=== PATIENT | male | born 1955 | race African-American/Black ===

== ENCOUNTER 2020-11-15 17:20 | Inpatient (IN) | payer OTHER ==
[~2020-11-15] VITALS: Ht 157.5 cm; Wt 55.1 kg
[2020-11-15 17:29] VITALS: BP 152/41
[2020-11-15 18:53] LABS: BASOPHILS 1.2 % (0.0-2.0); RBC 2.02 mil/uL (4.50-6.00)
[2020-11-15 18:55] LABS: ABSOLUTE NEUTROPHILS 3.3 thou/uL (1.4-8.2); EOSINOPHILS 6.5 % (0.0-3.0); LYMPHOCYTES 18.6 % (24.0-44.0); MONOCYTES 8.5 % (1.0-8.0); POLYS 65.2 % (36.0-66.0)
[2020-11-15 18:56] LABS: MCH 30.6 pg (26.0-34.0); MCHC 32.9 g/dL (28.0-37.0); MCV 92.9 fL (80.0-100.0); RDW 16.4 % (10.5-14.5)
[2020-11-15 18:59] LABS: HEMATOCRIT 18.8 % (42.0-52.0); HEMOGLOBIN 6.2 gm/dL (14.0-18.0)
[2020-11-15 19:00] LABS: CALCIUM 8.7 mg/dL (8.5-10.1); CREATININE 8.5 mg/dL (0.7-1.3); POTASSIUM 4.7 mmol/L (3.5-5.1)
[2020-11-15 19:14] LABS: ANISOCYTOSIS 1+; LARGE PLATELETS RARE; PLATELET COUNT 42 thou/uL (150-400)
[2020-11-15 20:48] VITALS: BP 157/59
[2020-11-15] MEDS ORDERED: VITAMIN C500 M2 PO (20:48)
[2020-11-15 21:20] VITALS: BP 126/25
[2020-11-15 21:43] VITALS: BP 128/50
[2020-11-15 23:04] VITALS: BP 142/40; BP 148/48
[2020-11-16] MEDS ORDERED: ATIVAN1 M1 PO (01:49)
[2020-11-16] MEDS ORDERED: ASA81BEC PO (01:49)
[2020-11-16] MEDS ORDERED: LIPITOR40 MG PO (01:50)
[2020-11-16] MEDS ORDERED: FUROSEMIDE 40 M40 MG PO (01:52)
[2020-11-16] MEDS ORDERED: SLOW FE142 MG PO (01:52)
[2020-11-16] MEDS ORDERED: HUMALOG100 UNIT/1 SUBQ (01:53)
[2020-11-16] MEDS ORDERED: HYDRALAZINE 10M10 MG PO (01:54)
[2020-11-16] MEDS ORDERED: ACULAR 0.5% EYE5 ML LT. EYE (01:56)
[2020-11-16] MEDS ORDERED: LEVOTHYROXINE100 MC2 PO (01:57)
[2020-11-16] MEDS ORDERED: LINEZOLID600 MG PO (01:59)
[2020-11-16] MEDS ORDERED: LOPERAMIDE 2 MG2 M1 PO (02:00)
[2020-11-16] MEDS ORDERED: MELATONIN3 M1 PO (02:00)
[2020-11-16] MEDS ORDERED: METAMUCIL FIBE3.4 GM PO (02:02)
[2020-11-16] MEDS ORDERED: PRED FORTE 1% EY5 M1 LT. EYE (02:05)
[2020-11-16] MEDS ORDERED: NORVASC5 MG PO (02:05)
[2020-11-16] MEDS ORDERED: REMERON15 M2 PO (02:07)
[2020-11-16] MEDS ORDERED: RENAL-VITE TAB0.8 MG PO (02:08)
[2020-11-16] MEDS ORDERED: RENVELA0.8 GM PO (02:09)
[2020-11-16] MEDS ORDERED: TRADJENTA5 MG (02:11)
[2020-11-16] MEDS ORDERED: SANTYL OINTMENT30 G1 TOP (02:11)
[2020-11-16] MEDS ORDERED: ZINC-22050 MG PO (02:12)
--- NOTE | 2020-11-16 04:13 | NUR ---
ASSUMED CARE OF PT FROM ED AT 2130. PT AOX3-4. PT WAS ORIENTED TO THE UNIT AND HIS ROOM. FALL PRECAUTION IN PLACE. PT WAS ABLE TO ANSWER MOST ADMISSION RELATED QUESTIONS. PT PLACED ON TELE. 1 UNIT OF PRBC GIVEN. PT REPORTED PAIN AND WAS TREATED WITH ONE TIME PAIN MEDS. ASSESSMENT CHARTED. RIGHT LOWER EXTEREMITY (STUMP) WOUND NOTED; PIC TAKEN. PROTONIX DRIP STARTED AFTER BLOOD TX. RUE PICC PLACEMENT VERIFIED. PT IS NPO. PT WAS ABLE OT GET COMFORTABLE AND SLEEP PART OF THE SHIFT. VSS AND NO S/S OF ACUTE DISTRESS. WILL CONTINUE TO MONITOR.
[2020-11-16 07:24] LABS: MCV 93.7 fL (80.0-100.0)
[2020-11-16 07:26] LABS: ABSOLUTE NEUTROPHILS 5.2 thou/uL (1.4-8.2); BASOPHILS 0.7 % (0.0-2.0); CALCIUM 8.6 mg/dL (8.5-10.1); CREATININE 9.4 mg/dL (0.7-1.3); EOSINOPHILS 3.2 % (0.0-3.0); HEMATOCRIT 23.3 % (42.0-52.0); HEMOGLOBIN 7.8 gm/dL (14.0-18.0); LYMPHOCYTES 7.2 % (24.0-44.0); MCH 31.2 pg (26.0-34.0); MCHC 33.3 g/dL (28.0-37.0); MONOCYTES 5.7 % (1.0-8.0); POLYS 83.2 % (36.0-66.0); POTASSIUM 5.1 mmol/L (3.5-5.1); RBC 2.48 mil/uL (4.50-6.00); RDW 15.3 % (10.5-14.5); WBC 6.2 thou/uL (4.0-11.0)
[2020-11-16 08:28] VITALS: BP 149/47
[2020-11-16 10:07] LABS: LARGE PLATELETS OCCASIONAL; PLATELET COUNT 39 thou/uL (150-400); PLATELET ESTIMATE MARKEDLY DECREASED
[2020-11-16 12:23] LABS: % SATURATION 109 % (20-39); IRON 198 ug/dL (65-175); TIBC 182 ug/dL (250-450)
--- NOTE | 2020-11-16 12:43 | NUR ---
WOUND CONSULT; INITAL ASSESSMENT. 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 THE WOUND SEEMS STALLED. THE WOUND HAS NO S/S OF INFECTION APPROX 50% NON VIABLE TISSUE IN THE WOUND BED, THE WOUND MEASURES APPROX 9 X 4 X 0.1 RECCOMMENDATIONS; -[address] NATASHA MORROW -2 FOR NOW FIONA, FOAM DRESSING, KEFLIX, RYAN. DISCUSSED WITH SKIP
--- NOTE | 2020-11-16 13:56 | NUR ---
FAXED CLINICAL UPDATES TO [facility]. WILL CONFIRM WITH MIKE/LIAISON THAT SHE RECEVIED. [facility] P [phone]; EFAX [phone]
--- NOTE | 2020-11-16 14:58 | NUR ---
PT ADMITTED RELATED TO GIB; ANEMIA. CM REVIEWED CHART AND SPOKE WITH CARE TEAM. CM CALLED AND SPOKE WITH PT'S DTR JOCELYN. SHE CONFIRMED THAT PT HAD BEEN AT [facility] AFTER HAVING A R BKA FOR THERAPY AND IV ABX. SHE INDICATED THAT IF PT NEEDS CONTINUES IV ABX AND REHAB UPON DC THAT SHE WOULD ANTICIPATE PT RETURING THERE TO RESUME SERVICES. CM PROVIDED CLINICAL UPDATE TO POST ACUTE LIASISON MIKE AND SHE INDICATED THEY ARE ABLE TO ACCEPT PT BACK ONCE MEDICALLY STABLE. PT IS CURRENTLY DOING DIALYSIS AT [facility] T, R, S. PT HAD PAT AT [facility] PRIOR TO SKILLED AT [facility] DTR SAID EVENTUAL PLAN IS FOR PT TO RETURN THERE AND DO IN HOUSE DIALYSIS. CM TO FOLLOW INDICATED WITH DC PLANNING.
[2020-11-16 19:59] VITALS: BP 138/54
--- NOTE | 2020-11-17 02:05 | NUR ---
ASSUMED CARE OF PT AT SHIFT CHANGE. PT IS AOX4 AND LETS NEEDS BE KNOWN. FALL PRECAUTION IN PLACE. DAILYSIS COMPLETED THIS SHIFT AND 2000ML FLUID WAS REMOVED. PT TOLERATED LAXATIVE (MAG CIT) THIS SHIFT AND HAD A LARGE BM. PT IS CRRENTLY NPO. D5 NS INFUSING AT 80ML/HR. PT WAS ABLE TO GET COMFORTABLE AND SLEEP PART OF THE SHIFT. VSS AND NO S/S OF ACUTE DISTRESS. WILL CONTINUE TO MONITOR.
[2020-11-17 06:13] LABS: ALBUMIN 2.5 g/dL (3.4-5.0); DIRECT BILIRUBIN 0.2 mg/dL (<0.1-0.2); TOTAL BILIRUBIN 0.5 mg/dL (0.2-1.0); TOTAL PROTEIN 6.9 g/dL (6.4-8.2)
--- NOTE | 2020-11-17 10:20 | NUR ---
PT ALERT AND ORIENTED THIS AM RESTING IN BED. PT STATES THAT HE IS TIRED. BLOOD GLUCOSE 67 THIS AM, D50 AMP GAVE PER PRN ORDER BLOOD SUGAR NOW 133. PT ALERT AND IS WATCHING TV AT THIS TIME, DENIES PAIN OR DISCOMFORT. PT CONT TO BE NPO AT THIS TIME PENDING PROCEDURES FOR GI BLEED.
--- NOTE | 2020-11-17 11:00 | NUR ---
WOUND CARFE F/U; THE WOUNDS WERE ASSESSED BY PASCUAL SAMS. THE WOUND HAS SOME BENIFIT FROM [facility] IN JUST TWO DAYS. WE WILL CONTINUE DRESSING CHANGES PER DR MORROW. NO ODOR OR ASSESSMENT FINDING SUGGESTIVE OF A LOCAL INFECTION. CONTINUE CURRENT ORDERS. DISCUSSED WITH SKIP
--- NOTE | 2020-11-17 12:24 | NUR ---
CARE TEAM INDICATED THAT PT IS TO HAVE A COLONOSCOPY TOMORROW. PT CONTINUES ON IV ABX, WC , AND T, R, S DIALYSIS. CM TO FOLLOW INDICATED WITH DC PLANNING.
[2020-11-17 15:50] VITALS: BP 163/73
--- NOTE | 2020-11-17 15:55 | NUR ---
PT RESTING AT THIS TIME AND EDUCATED ON THE PLAN FOR EGD AND COLONOSCOPY 11/18, DAUGHTER CALLED AND UPDATED ON PLAN. PT HAS NO QUESTIONS OR CONCERNS AT THIS TIME AND CONT ON A CLEAR LIQUID DIET.
[2020-11-17 17:07] LABS: HEP B SURFACE Ab(ANTI-HBS Reactive (()); HEPATITIS B SURFACE AG Negative (Negative)
[2020-11-17 20:00] VITALS: BP 152/50
[2020-11-18] VITALS (12 sets, daily range): BP systolic 143–183; BP diastolic 46–88
[2020-11-18 05:45] LABS: MCHC 33.6 g/dL (28.0-37.0); MCV 93.6 fL (80.0-100.0); WBC 2.6 thou/uL (4.0-11.0)
[2020-11-18 05:46] LABS: HEMATOCRIT 21.4 % (42.0-52.0); HEMOGLOBIN 7.2 gm/dL (14.0-18.0); MCH 31.4 pg (26.0-34.0); RBC 2.29 mil/uL (4.50-6.00); RDW 15.8 % (10.5-14.5)
[2020-11-18 07:47] LABS: CALCIUM 8.4 mg/dL (8.5-10.1); POTASSIUM 3.9 mmol/L (3.5-5.1)
[2020-11-18 07:49] LABS: CREATININE 7.4 mg/dL (0.7-1.3)
--- NOTE | 2020-11-18 12:17 | NUR ---
PT HAVING COLONOSCOPY THIS DAY. PT CONTINUES ON IV ABX, WC, AND DIALYSIS. CLINICAL UPDATE SENT TO [facility]. TO FOLLOW INDICATED WITH DC PLANNING.
--- NOTE | 2020-11-18 18:27 | NUR ---
PT HAD DIALYSIS TODAY. 2L FLUID OFF IN DIALYSIS. PT LEFT FOR COLONSCOPY AT 1645 WITH GI NURSING STAFF. PT BLOOD GLUCOSE WAS LOW AT NOON. 1 AMP OF DEXTROSE GIVEN PT WAS NPO AND CHECK WAS 114.
--- NOTE | 2020-11-19 01:41 | NUR ---
RETURNED FROM GI PROCEDURE APPROXIMATELY 1900. PT IS A/O X4 AND IS ON BED REST. ROOM AIR. SR ON THE MONITOR. BP ELEVATED AT START OF SHIFT AND HAS BEEN TRENDING DOWN SINCE.HS BS SUGAR REQUIRED INSULIN COVERAGE CHARTED IN NOV. FALL PRECAUTIONS IN PLACE, CALL LIGHT IS WITHIN REACH. WILL CONTINUE TO MONITOR.
--- NOTE | 2020-11-19 08:13 | NUR ---
Note Given: Y Facility List Provided:Y Facility Maciej: None chosen at this time Roxy Feng NP discussed BPCI with this pt 11/18/2020
[2020-11-19 08:28] VITALS: BP 156/58
[2020-11-19 09:18] LABS: HEMATOCRIT 22.1 % (42.0-52.0); RBC 2.39 mil/uL (4.50-6.00); WBC 3.7 thou/uL (4.0-11.0)
[2020-11-19 09:20] LABS: HEMOGLOBIN 7.3 gm/dL (14.0-18.0); MCH 30.6 pg (26.0-34.0); MCV 92.8 fL (80.0-100.0)
[2020-11-19 09:27] LABS: MAGNESIUM 2.3 mg/dL (1.8-2.4); POTASSIUM 3.6 mmol/L (3.5-5.1)
[2020-11-19 09:28] LABS: CREATININE 5.1 mg/dL (0.7-1.3)
[2020-11-19 11:42] LABS: ALBUMIN 2.6 g/dL (3.4-5.0); DIRECT BILIRUBIN 0.2 mg/dL (<0.1-0.2); TOTAL BILIRUBIN 0.5 mg/dL (0.2-1.0); TOTAL PROTEIN 6.9 g/dL (6.4-8.2)
[2020-11-19 11:53] VITALS: BP 144/63
--- NOTE | 2020-11-19 14:30 | NUR ---
FAXED CLINICAL UPDATE TO [facility] RECEIVED CONFIRMATION AND SPOKE WITH MIKE IN ADM FOR POSS DC OVER THE WEEKEND.
--- NOTE | 2020-11-19 14:34 | NUR ---
CARE TEAM INDICATED THAT PT MAY BE MEDICALLY STABLE TO DC BACK TO [facility] THIS WEEKEND. CLINICAL UPDATES WERE FAXED TO THE FACILITY. CHART COPY WILL NEED TO BE MADE. PT IS , SUNDAY, SUNDAY DIALYSIS HERE AND AT THE FACILITY AT [facility]. IF DC READY OVER WEEKEND CONTACT KRISTI MAIRE AT . ORDERS WILL NEED TO BE FAXED TO . CALL REPORT TO . NOTIFY PT'S DTR.
[2020-11-19 16:28] VITALS: BP 150/65
--- NOTE | 2020-11-19 20:10 | NUR ---
Assumed pt care this am. Pt is alert and orientes x2 self & place. Pt has R UA PICC single lumen & L UA fistula. Pt has L AKA & R BKA. Changed dressing on R BKA stump with NS, therahoney, xeroform, abd, kerlix and RYAN. Has a purulent drainage found. Pt had more than 6 loose stool according to student nurse & professor. Informed Dr. Torres via myairlmail. Given loperamide for diarrhea as ordered. Collected stool sample this am. Pt on the bed, bed on the lowest position, side rails up x2 and call light within reach. Endorse night nurse.
[2020-11-19 21:00] VITALS: BP 155/53
[2020-11-20 05:32] LABS: HEMOGLOBIN 6.6 gm/dL (14.0-18.0); RBC 2.13 mil/uL (4.50-6.00)
[2020-11-20 05:34] LABS: MCH 30.9 pg (26.0-34.0); MCHC 33.1 g/dL (28.0-37.0); MCV 93.5 fL (80.0-100.0); RDW 16.2 % (10.5-14.5); WBC 4.3 thou/uL (4.0-11.0)
[2020-11-20 05:35] LABS: CALCIUM 8.1 mg/dL (8.5-10.1); CREATININE 6.7 mg/dL (0.7-1.3); MAGNESIUM 2.3 mg/dL (1.8-2.4); POTASSIUM 3.6 mmol/L (3.5-5.1)
--- NOTE | 2020-11-20 05:39 | NUR ---
Assumed pt care at 1900. A/OX3,able to make needs known. C/o pain to right hip,medicated with Tramadol with relief reported. Incontinent of bowels this hsift,reports produces little urine at times. Dsg to Right stump C/D/I. LUE fistula positive with bruit/thrill. SA/SR on telemetry. Fall precautions in place,will continue to monitor pt.
[2020-11-20 08:17] VITALS: BP 148/61
--- NOTE | 2020-11-20 09:45 | NUR ---
Hgb at 6.[address] Torres, was advised to speak to nephro for blood transfusion to be given with dialysis today. As pr Nephro, he spoke to the Dr. Torres agreed to have BT at the same time, awainting for BT orders to be in.
--- NOTE | 2020-11-20 14:42 | NUR ---
Pt is alert & oriented x3 to self, place & situation. Pt is currently undergoing dialysis. Daughter is the DPOA. Explain & inform that blood transfusion ordered and needed because HGB is less than 7. Given consent for blood transfusion via telephone. Daughter is currently brought the DPOA paper and at the bedside. Dialysis infused 1 packed RBC to the pt. C. Diffile result still pending. Will continue to assess and monitor. Follow POC.
[2020-11-20 20:50] VITALS: BP 138/49
--- NOTE | 2020-11-21 03:40 | NUR ---
PT CARE ASSUMED WT 1900 WITH PT SLEEPING.PT IS A/O X3.PT IS ON BEDREST.PT IS ON ISOLATION CDIFF PENDING RESULTS.PT HAD LOOSE STOOL DURING SHIFT AND PT IS ABLE TO TURN FROM SIDE TO SIDE AND MOVE IN BED.PT IS ACCUCHECK Q6H. WITH LOW SSI.PT IS INCONTINENT TO B AND ANURIC.PT IS A ON DIALYSIS AND HAD DIALYSIS DONE YESTERDAY AND ALSO HAD A BLOOD TRANSFUSION DONE.DRESSING ON RT STUMP D/C/I.IV ACCESS PICC SINGLE LUMEN ON HAYLEY AND DIALYSIS ACCESS ON NAVDEEP A.V. FISTULA.WILL CONTINUE TO MONITOR PER POC
[2020-11-21 09:30] VITALS: BP 139/60
[2020-11-21 10:49] LABS: ALBUMIN 2.4 g/dL (3.4-5.0); CALCIUM 8.1 mg/dL (8.5-10.1); PHOSPHORUS 1.9 mg/dL (2.5-4.9); POTASSIUM 3.5 mmol/L (3.5-5.1); TOTAL BILIRUBIN 0.9 mg/dL (0.2-1.0); TOTAL PROTEIN 6.8 g/dL (6.4-8.2)
[2020-11-21 10:52] LABS: CREATININE 4.7 mg/dL (0.7-1.3)
[2020-11-21 11:44] LABS: HEMOGLOBIN 7.6 gm/dL (14.0-18.0)
[2020-11-21 11:46] LABS: ABSOLUTE NEUTROPHILS 1.9 thou/uL (1.4-8.2); BASOPHILS 0.3 % (0.0-2.0); EOSINOPHILS 5.9 % (0.0-3.0); HEMATOCRIT 22.7 % (42.0-52.0); MCH 30.9 pg (26.0-34.0); MCHC 33.3 g/dL (28.0-37.0); MCV 92.7 fL (80.0-100.0); MONOCYTES 21.7 % (1.0-8.0); POLYS 45.1 % (36.0-66.0); RBC 2.45 mil/uL (4.50-6.00); RDW 16.1 % (10.5-14.5); WBC 4.3 thou/uL (4.0-11.0)
[2020-11-21 13:01] LABS: PLATELET COUNT 37 thou/uL (150-400)
[2020-11-21 13:56] VITALS: BP 168/62
--- NOTE | 2020-11-21 16:21 | NUR ---
PT CARE ASSUMED AT 0700. A&Ox4. NSR ON THE MONITOR. UP IN HIS PERSONAL WHEELCHAIR. C-DIFF NEGATIVE. DR. MOTLEY NOTIFIED AND ISOLATION CANCELLED. PT CONTINUES TO HAVE LOOSE STOOLS. IMMODIUM GIVEN. DIALYSIS PT MARYE, MELISSA, SAT. NAVDEEP FISTULA THRILL AND BRUIT POS. ZGUARD APPLIED TO BOTTOM. HGB 7.6 TODAY, STABLE FOR PT MEDICAL HISTORY. PICC LINE FLUSHES AND DRAWS BACK. FALL PROTOCOL IN PLACE. CALL LIGHT IN REACH. PT UP IN THE HALLWAY.
[2020-11-21 17:44] VITALS: BP 152/64
[2020-11-21 20:09] VITALS: BP 151/62
[2020-11-22 08:28] VITALS: BP 133/54
[2020-11-22] MEDS ORDERED: ACETAMINOPHEN325 M1 PO (11:07)
[2020-11-22] MEDS ORDERED: HUMALOG100 UNIT/1 SUBQ (11:07)
--- NOTE | 2020-11-22 11:37 | HC ---
[facility] [place] [place] [address] CONSULTATION Name: MARIA G PAZ Room #: 460-P ADM IN M.R.#: [id number] Admission: 11/16/20 Attend Phys: Jimmy Torres MD Discharge: Date of : 59 Report #: [id number] THIS REPORT FOR: cc: Shaka Galeano James D. DO Althoff, Jeffrey R. MD ~ DATE OF SERVICE: 11/16/2020 CHIEF COMPLAINT: Right BKA surgical wound. HISTORY OF PRESENT ILLNESS: This is a 65-year-old male patient who was admitted through the Emergency Department after having been found to have a hemoglobin of 6.4. He has had a previous right below-knee amputation. I have been asked to see him with regard to an area of separation along the incision line. PAST MEDICAL HISTORY: Positive for history of osteomyelitis, right lower extremity, status post below-knee amputation, COPD, type 2 diabetes mellitus, cognitive communication deficit, hyperlipidemia, hypertension, end-stage renal disease, requiring dialysis, previous left above-knee amputation and recent right below-knee amputation. SOCIAL HISTORY: Negative for alcohol or tobacco use. FAMILY HISTORY: Noncontributory. REVIEW OF SYSTEMS: Not obtainable as the patient is limited with his ability to communicate. ALLERGIES: None. MEDICATIONS: Include amlodipine, ascorbic acid, aspirin, atorvastatin, collagenase, ferrous sulfate, folic acid, furosemide, hydralazine, insulin, ketorolac, linezolid, levothyroxine, loperamide, lorazepam, melatonin, mirtazapine, prednisone, sevelamer, and zinc sulfate. PHYSICAL EXAMINATION: VITAL SIGNS: At this time include temperature is 37.3, pulse 73, respiratory rate 19, blood pressure 149/47. GENERAL: This is a chronically ill-appearing male patient who appears to be in minimal distress. HEENT: Head normocephalic. Nose and throat clear. NECK: Supple. HEART: Regular, without murmur. ABDOMEN: Soft. Bowel sounds present. EXTREMITIES: Examination of the lower extremities demonstrates a previously [facility] [address] [place] [address] CONSULTATION Name: MARIA G PAZ Room #: 460- ADM IN M.R.#: [id number] Admission: 11/16/20 Attend Phys: Jimmy Torres MD Discharge: Date of : 59 Report #: [id number] healed left above-knee amputation site. The right below-knee amputation has some separation along the incision line. It is relatively shallow. There is a little bit of fibrin that is able to be wiped away pretty easily revealing a fairly healthy, clean, granulating base. NEUROLOGIC: The patient is awake. Communication is limited. Appears to be moving symmetrically. LABORATORY DATA: Include sodium 139, potassium 5.1, chloride 102, CO2 of 24, BUN 58, creatinine 9.4, glucose is 69. White blood cell count 6.2 with a hemoglobin of 7.8. CLINICAL IMPRESSION: 1. Surgical wound, right below-knee amputation site. 2. Previous left below-knee amputation. 3. End-stage renal disease, chronic dialysis. 4. Type 2 diabetes mellitus. 5. Peripheral vascular disease. 6. Moderate protein-calorie malnutrition, albumin 2.5. 7. Generalized weakness and debility. RECOMMENDATIONS: At this point in time, recommend Medihoney, ABD, Kerlix and Travis wrap to the right BKA site. We will recommend continued medical management for the other underlying medical issues. Nutritional support to maximize wound healing. I appreciate being asked to see him in consultation. <ELECTRONICALLY SIGNED> By: Lasha Dupree MD 11/22/20 1137 [id number] Lasha Dupree MD /nt
--- NOTE | 2020-11-22 13:00 | NUR ---
Assumed pt care at 7am.Assessment completed.vss but low blood sugar noted.Stat blood glucose ordered from lab.Apple juice give with breakfast tray.Blood sugar recheck and the reading was better.At lunch bs was 115.Dr Torres here,dc order noted.Pt will be dc to [facility] later today.Pt up in eating lunch.Will continue to monitor.
--- NOTE | 2020-11-22 16:14 | NUR ---
CARE TEAM INDICATED THAT PT IS MEDICALLY STABLE TO DC THIS DAY. CM HAD SPOKEN WITH PT AND WITH HIS DTR. THEY INDICATED ULTIMATE DESIRE TO RETURN TO [facility] ONCE PT WAS OFF ABX AND DO IN HOUSE DIALYSIS THERE. CM REACHED OUT TO ADMISSIONS AT [facility] AND FAXED CLINICAL TO THEM. THEY ARE ABLE TO TAKE PT BACK FOR IN HOUSE DIALYSIS AND WE SET UP TRANSPORT TIME THEY THEN INDICATED THAT THEY MAY NOT BE ABLE TO ACCEPT PT BACK B/C OF A MEDICAID CALLED MAY.. THEY CARE CHECKING WITH THEIR CORPORATE OFFICE AND WILL LET CM KNOW. PT WILL DC TO EITHER [facility] OR TO [facility] THIS DAY.
[2020-11-22 17:03] VITALS: BP 158/60
--- NOTE | 2020-11-22 18:31 | PATH ---
[facility] [address] [place] [address] PATHOLOGY RPT PROCEDURE Name: MARIA G PAZ Room #: 460-P ADM IN M.R.#: [id number] Admission: 11/16/20 Date of : 59 Discharge: Report #: [id number] Path Case #: [id number] [facility] Accession Number: [id number] . 01 Material submitted: . PART A: duodenum - BIOPSY DUODENUM PART B: stomach - BIOPSY ANTRUM . 01 Clinical history: . A: R/O CELIAC B: R/O H PYLORI PRE OP DIAGNOSIS POSITIVE HEMOCCULT POST OP DIAGNOSIS HIATAL HERNIA, ESOPHAGEAL STRICTURE, GASTRITIS, DIVERTICULITIS, INTERNAL HEMORRHOIDS . 02 Diagnosis: A. Small bowel mucosa, duodenum, rule out celiac, endoscopic biopsy: - Mild acute and chronic nonspecific duodenitis with focal villous blunting present along with fundic-type metaplasia. - No increase in intraepithelial lymphocytes. . B. Gastric mucosa, antrum, endoscopic biopsy: - Mild reactive gastropathy. - Negative for intestinal metaplasia or atrophy. - Negative for Helicobacter pylori (properly controlled immunohistochemical stain performed). . (IUV:medical technologist; 11/22/2020) MBR 11/22/2020 1223 Local . 02 Electronically signed: . Kristen Orozco MD, Pathologist NPI- [id number] . 01 Gross description: . A. The specimen is received in formalin, labeled "Maria G Matty, biopsy duodenal". Received are two segments of pale briggs tissue measuring 0.3 and 0.6 cm in maximum dimensions. The specimen is submitted entirely in cassette A1. . B. The specimen is received in formalin, labeled "Maria G Paz, biopsy antrum". Received are two segments of pale briggs tissue measuring 0.3 and 0.7 cm in maximum dimensions. The specimen is submitted entirely in cassette B1. (CAA; 11/21/2020) QAC/QAC 11/21/2020 1721 Local . [address] [address] PATHOLOGY RPT PROCEDURE Name: MARIA G PAZ Room #: 460-P [facility] IN M.R.#: [id number] Admission: 11/16/20 Date of : 59 Discharge: Report #: [id number] Path Case #: [id number] Pathologist provided ICD-10: K29.80, K31.9 . 02 CPT . 240103, 337299, [id number] Specimen Comment: A courtesy copy of this report has been sent to [phone] Specimen Comment: Report sent to Performed at: [address], [place] [id number] MD Rei Montiel MD Phone: [phone] Performed at: [address] [id number] MD Kristen Orozco MD Phone: [phone]
[2020-11-22 20:09] VITALS: BP 146/52
--- NOTE | 2020-11-23 02:58 | NUR ---
PT CARE ASSUMED WITH PT IN W/C RELAXING.PT STILL IN W/C TILL THIS TIME AND SAYS WILL CALL TO GO TO BED WHEN HE IS READY TO SLEEP.PT HAS A LT LIMB ALERT WITH AV FISTULA ON NAVDEEP.PT IS INCONTINENT TO B/B.PT IS ACCUCHECK ACHS .PT HAD BLOOD SUGAR LEVEL OF 42 BUT ASYMPTOMATIC.PT HAS GLUCOSE TABLET AND ORANGE JUICE AND SNACKS.PT BLOOD SUGAR RECHECKED AND WAS 126.WILL CONTINUE TO MONITOR
[2020-11-23 08:05] VITALS: BP 166/92
[2020-11-23] MEDS ORDERED: PHOSLO667 MG PO (12:46)
--- NOTE | 2020-11-23 15:05 | NUR ---
PHYSICIAN CHANGED THE DC MED THAT WAS AN ISSUE. [facility] NOW ABLE TO ACCEPT HIM WITH NO ISSUE. PT ESTABLISHED THERE WITH IN HOUSE DIALYSIS. CM NOTIFIED PT AND HIS DTR AT BEDSIDE THIS DAY. [facility] TRANSPORT ARRANGED BETWEEN [phone]. CHART COPY MADE. ORDERS FAXED. NURSE GIVEN NUMBER FOR REPORT. NO OTHER CM INTERVENTION INDICATED. CASE CLOSED.
[2020-11-23 16:10] VITALS: BP 171/63
--- NOTE | 2020-11-23 16:53 | NUR ---
Assumed pt care at 7am. Pt in bed getting ready for hemodialysis.Assessment completed.vss.Pt tolerated meds and diet.Dr Torres here,dc order noted. Hemodialysis completed at noon. Per dialysis report, 700ml fluid was taken off today.Attempted x3 to give report to snf prior to pt leaving the hospital but no luck.Message left.At 1640,pt dc per van to snf.
== END 2020-11-23 16:40 | DRG 377 ==
LOC: ER 17:20 → 4W 20:31 → EROBS 20:31 → 4W 21:23
PROVIDERS: Anesthesiology; Hospitalist; Internal Medicine Nephrology; Nurse Practitioner; Nurse Practitioner Family; ADMIT Internal Medicine; ATTEND Internal Medicine
PROC: 05HY33Z Insertion of Infusion Device into Upper Vein, Percutaneous Approach (ICD-10-PCS; 2020-11-16)
PROC: 0DB98ZX Excision of Duodenum, Via Natural or Artificial Opening Endoscopic, Diagnostic (ICD-10-PCS; principal; 2020-11-18)
PROC: 0DB68ZX Excision of Stomach, Via Natural or Artificial Opening Endoscopic, Diagnostic (ICD-10-PCS; principal; 2020-11-18)
PROC: 0DJD8ZZ Inspection of Lower Intestinal Tract, Via Natural or Artificial Opening Endoscopic (ICD-10-PCS; principal; 2020-11-18)
PROC: 5A1D70Z Performance of Urinary Filtration, Intermittent, Less than 6 Hours Per Day (ICD-10-PCS; principal; 2020-11-18)
PROC: 5A1D70Z Performance of Urinary Filtration, Intermittent, Less than 6 Hours Per Day (ICD-10-PCS; 2020-11-20)
PROC: 30233N1 Transfusion of Nonautologous Red Blood Cells into Peripheral Vein, Percutaneous Approach (ICD-10-PCS; 2020-11-20)
PROC: 5A1D70Z Performance of Urinary Filtration, Intermittent, Less than 6 Hours Per Day (ICD-10-PCS; 2020-11-23)
DX: K29.71 Gastritis, unspecified, with bleeding (principal); N18.6 End stage renal disease; D62 Acute posthemorrhagic anemia; E44.0 Moderate protein-calorie malnutrition; M86.8X6 Other osteomyelitis, lower leg; K57.31 Diverticulosis of large intestine without perforation or abscess with bleeding; Z20.822 Contact with and (suspected) exposure to COVID-19; J44.9 Chronic obstructive pulmonary disease, unspecified; D69.6 Thrombocytopenia, unspecified; R53.81 Other malaise; R74.01 Elevation of levels of liver transaminase levels; T87.9 Unspecified complications of amputation stump; K22.2 Esophageal obstruction; K44.9 Diaphragmatic hernia without obstruction or gangrene; E11.22 Type 2 diabetes mellitus with diabetic chronic kidney disease; I12.9 Hypertensive chronic kidney disease with stage 1 through stage 4 chronic kidney disease, or unspecified chronic kidney disease; E11.69 Type 2 diabetes mellitus with other specified complication; E03.9 Hypothyroidism, unspecified; E11.51 Type 2 diabetes mellitus with diabetic peripheral angiopathy without gangrene; E78.5 Hyperlipidemia, unspecified; Z89.512 Acquired absence of left leg below knee; Z89.611 Acquired absence of right leg above knee; Z79.82 Long term (current) use of aspirin; Z79.899 Other long term (current) drug therapy; Z68.22 Body mass index [BMI] 22.0-22.9, adult; Z86.14 Personal history of Methicillin resistant Staphylococcus aureus infection; Z89.511 Acquired absence of right leg below knee; Z47.89 Encounter for other orthopedic aftercare; Y83.5 Amputation of limb(s) as the cause of abnormal reaction of the patient, or of later complication, without mention of misadventure at the time of the procedure
CPT/HCPCS: 10045; 32100; 62110; 62900